=== PATIENT | female | born 1935 | race Caucasian/White ===

== ENCOUNTER → 2021-12-01 11:12 | Outpatient (BNVA) | payer MEDICARE, SELFPAY | PROVIDERS: PCP Internal Medicine; Visit Provider Internal Medicine Endocrinology, Diabetes & Metabolism | DX: M81.0 Age-related osteoporosis without current pathological fracture (principal) | CPT/HCPCS: 99202 ==

== ENCOUNTER 2021-12-01 11:58 | Outpatient (REF) | payer MEDICARE, SELFPAY ==
[2021-12-05 21:51] LABS: Prot Elec - Albumin 3.8 g/dL (3.8-4.8); Prot Elec - Alpha1 0.3 g/dL (0.2-0.3); Prot Elec - Alpha2 0.8 g/dL (0.5-0.9); Prot Elec - Beta 1 0.5 g/dL (0.4-0.6); Prot Elec - Beta 2 0.3 g/dL (0.2-0.5); Prot Elec - Total Protein 6.7 g/dL (6.1-8.1)
== END 2021-12-01 11:59 | disposition home or self-care (01) ==
LOC: HO.10HDL 11:58
PROVIDERS: Visit Provider Internal Medicine Endocrinology, Diabetes & Metabolism
DX: M81.0 Age-related osteoporosis without current pathological fracture (principal)
CPT/HCPCS: 84165; 86335

== ENCOUNTER 2022-04-28 10:29 | Outpatient (REF) | payer MEDICARE, SELFPAY ==
[2022-04-28 14:51] LABS: Creatinine, mg/dL 78.67
[2022-04-28 18:18] LABS: Creatinine, 24Hr Urine 0.9 G/Day (1.0-2.0); Total Volume 24 Hour Urine 1150 mL
[2022-04-29 18:53] LABS: Calcium, 24 Hr Urine 313 mg/24 h; Calcium/Creatinine Ratio 344 mg/g creat (30-275); Creatinine 24Hr Urine 0.91 g/24 h (0.50-2.15)
== END 2022-04-28 10:30 | disposition home or self-care (01) ==
LOC: HO.10HDLNP 10:29
PROVIDERS: Visit Provider Internal Medicine Endocrinology, Diabetes & Metabolism
DX: M81.0 Age-related osteoporosis without current pathological fracture (principal)
CPT/HCPCS: 82340; 82570

== ENCOUNTER → 2022-05-04 07:41 | Outpatient (BNVA) | payer MEDICARE, SELFPAY | PROVIDERS: PCP Internal Medicine; Visit Provider Internal Medicine Endocrinology, Diabetes & Metabolism | DX: M81.0 Age-related osteoporosis without current pathological fracture (principal) | CPT/HCPCS: 99212 ==

== ENCOUNTER 2022-09-27 13:44 | Outpatient (REF) | payer MEDICARE, SELFPAY ==
[2022-09-27 15:08] LABS: Creatinine, mg/dL 40.57
[2022-09-27 19:13] LABS: Creatinine, 24Hr Urine 0.7 G/Day (1.0-2.0); Sodium 24 Hr Urine 126.8 mmol/Day (40-220); Total Volume 24 Hour Urine 1625 mL
[2022-10-02 16:39] LABS: Calcium, 24 Hr Urine 154 mg/24 h; Calcium/Creatinine Ratio 232 mg/g creat (30-275); Creatinine 24Hr Urine 0.67 g/24 h (0.50-2.15)
== END 2022-09-27 13:45 | disposition home or self-care (01) ==
LOC: HO.LNP 13:44
PROVIDERS: Visit Provider Internal Medicine Endocrinology, Diabetes & Metabolism
DX: M81.0 Age-related osteoporosis without current pathological fracture (principal)
CPT/HCPCS: 82340; 84300

== ENCOUNTER → 2022-10-05 07:58 | Outpatient (BNVA) | payer MEDICARE, SELFPAY | PROVIDERS: PCP Internal Medicine; Visit Provider Internal Medicine Endocrinology, Diabetes & Metabolism | DX: M81.0 Age-related osteoporosis without current pathological fracture (principal); R82.994 Hypercalciuria; E89.0 Postprocedural hypothyroidism; Z90.710 Acquired absence of both cervix and uterus | CPT/HCPCS: 99212 ==

== ENCOUNTER 2023-10-04 14:12 | Outpatient (AMB) | payer MEDICARE, SELFPAY ==
--- NOTE | 2023-10-04 14:31 | HO.SPINEOV ---
Intake Visit Reasons: low back pain Intake Note: Ms. Hernandes is here today c/o low back pain. Practice Managers Required: No Allergies alendronate sodium Adverse Reaction (Unknown, Verified 10/04/23 14:36) Abdominal Pain Assessment & Plan Assessment & Plan (1) Lumbar radiculopathy: Code(s): M54.16 - Radiculopathy, lumbar region Category: Medical Plan Mrs Hernandes is here in follow-up today. We did a left L5 foraminotomy on her about a year and a half ago at [facility]. The symptoms that she presented with at that time was pain starting in her left buttock going down into her left posterolateral thigh, into her outer calf. Unfortunately she had no relief at all from the procedure. Not even for single day. The patient reports that when she stands and walks she will get the same severe burning pain down her leg. The only time it has gone away, was when she fractured her ankle back in April and she had to be on a scooter and nonweightbearing and she had 0 pain at that time. Unfortunately when she started walking again after the fracture healed all the symptoms came back. She underwent physical therapy for few months, chiropractor, acupuncture as well as all the typical iwoj-guk-lasvxop meds like Motrin and Tylenol. She is very frustrated because her quality of life is suffering significantly. I am going to order a new MRI of the lumbar spine with and without sadiq out to look for any residual compression. I will also order standing flexion-extension x-rays to rule out any occult instability into assess her bone quality. At her age I suspect the bone quality will not be very good. This may limit what we can do for her if there are any pertinent findings on the MRI. I would like to see her back after the MRI is completed. I have asked her to please make sure she gets a copy of the disc and brings it with her to that visit. Total amount of time spent in this visit was 20 minutes in discussion of symptoms, ordering lumbar imaging and subsequent plan of care Blaine Mckinnon MD,PhD [facility] Orders: Orders XR lumbar spine 4V min Today M54.16 - Radiculopathy, lumbar region MR lumbar spine wo/w con Today M54.16 - Radiculopathy, lumbar region Coding Level of Care Code Est Pt Level 3 (00329) Diagnoses Lumbar radiculopathy M54.16
== END 2023-10-04 15:57 | disposition home or self-care (01) ==
PROVIDERS: PCP Internal Medicine; Visit Provider Physician Assistant
DX: M54.16 Radiculopathy, lumbar region (principal)
CPT/HCPCS: 99213

== ENCOUNTER 2023-10-04 14:12 | Outpatient (REF) | payer MEDICARE, SELFPAY ==
--- NOTE | ~2023-10-04 | XR_ITS ---
EXAMINATION: XR LUMBOSACRAL SPINE WITH OBLIQUES CLINICAL INFORMATION: Radiculopathy lumbar region. COMPARISON: None available. TECHNIQUE: AP, lateral neutral, flexion and extension views of the lumbar spine. FINDINGS: The bones are diffusely demineralized. Levoscoliosis of the thoracolumbar spine. Facet arthritis in the jfr-aw-egopp lumbar spine. Multilevel lumbar spondylosis with multilevel loss of disc space height most notable at L5-S1. Grade 1 anterolisthesis of L4 on L5 with flexion and extension. Mild grade 1 retrolisthesis of L1 on L2 with flexion and extension. XR/XR lumbar spine 4V min IMPRESSION: 1. Advanced multilevel lumbar spondylosis most notable at L5-S1. 2. Facet arthritis in the hiv-rz-hlhab lumbar spine.
== END 2023-10-04 14:13 | disposition home or self-care (01) ==
LOC: HO.HOSX 14:12
PROVIDERS: PCP Internal Medicine; Visit Provider Physician Assistant
DX: M47.27 Other spondylosis with radiculopathy, lumbosacral region (principal); M47.26 Other spondylosis with radiculopathy, lumbar region
CPT/HCPCS: 72110; 99212

== ENCOUNTER 2023-10-19 10:44 | Outpatient (AMB) | payer MEDICARE, SELFPAY ==
--- NOTE | 2023-10-19 11:00 | A.SPINEOV_ITS ---
Intake Visit Reasons: MRI follow up Intake Note: Ms. Hernandes is here today for her MRI F/u Bilingual Secretary Required: No Allergies alendronate sodium Adverse Reaction (Unknown, Verified 10/19/23 11:00) Abdominal Pain Assessment & Plan Assessment & Plan (1) Lumbar radiculopathy: Code(s): M54.16 - Radiculopathy, lumbar region Category: Medical Plan Mrs Hernandes is here in follow-up today. This is a very nice woman who underwent a left L4-5 decompression, L5 foraminotomy in 2021. Before her surgery, she had been living with severe radiculopathy going down her left leg. She underwent a cortisone block at L5 which gave her tremendous relief. She was therefore offered the decompression surgery. Her 1st postoperative visit at [facility], she seemed to be doing okay. The patient reports she never had tremendous relief, but unfortunately over time the symptoms have not only reappeared but have gotten much much worse. She spends the better part of her day dealing with the pain, she was down her left leg into her outer calf. She has numbness of her toes. She has at a point where it is almost unbearable now and she barely wants to leave the house. Please see my last note for the specifics of the problem. Thankfully she has normal strength in her foot. She underwent an MRI at [facility] and this shows that she has the levoscoliosis as seen on her x-rays, but persistent severe stenosis in the left L5 foramen. This is likely due to the fact that she has the severe scoliosis contributing to mechanical factors causing the foramen to remain closed despite adequate decompression at the time of surgery. Dr. Mckinnon reviewed the imaging with me today, he is willing to offer her left L5-S1 pedicle screw fixation, redo foraminotomy/facetectomy. In terms of her medical history, she is very healthy for her age, she has minimal issues including high cholesterol and kidney stone. The only medication she takes currently is latanoprost eyedrops and a statin for her cholesterol. Pt was given risk and benefits of surgery including but not limited to infection, hematoma , nerve injury,durotomy, weakness,bowel/bladder injury, persistent pain, hardware failure as well as the option to continue with conservative treatment and patient wishes to proceed with surgery. Pt is aware they should stop their motrin, aspirin 7 days prior to surgery. All questions were answered to the best of our ability. If there is anything about this patientsmedical history that we have overlooked or concerns you have about us proceeding with surgery we would appreciate any input you can offer. Total amount of time spent in this visit was 20 minutes in discussion of symptoms, lumbar MRI [facility] imaging results and subsequent plan of care Blaine Mckinnon MD,PhD [facility] Coding Level of Care Code Est Pt Level 3 (72066) Diagnoses Lumbar radiculopathy M54.16
== END 2023-10-19 11:45 | disposition home or self-care (01) ==
PROVIDERS: PCP Internal Medicine; Visit Provider Physician Assistant
DX: M54.16 Radiculopathy, lumbar region (principal)
CPT/HCPCS: 99213

== ENCOUNTER → 2023-10-19 10:44 | Outpatient (BNVA) | payer MEDICARE, SELFPAY | PROVIDERS: PCP Internal Medicine; Visit Provider Physician Assistant | DX: M54.16 Radiculopathy, lumbar region (principal) | CPT/HCPCS: 99212 ==

== ENCOUNTER → 2024-01-01 10:46 | Outpatient (BNV) | payer MEDICARE, SELFPAY | PROVIDERS: PCP Internal Medicine; Visit Provider Internal Medicine Cardiovascular Disease | DX: Z01.810 Encounter for preprocedural cardiovascular examination (principal) | CPT/HCPCS: 93010 ==

== ENCOUNTER 2024-01-15 06:04 | Inpatient (IN) | payer MEDICARE, SELFPAY ==
--- NOTE | 2024-01-01 | ECG_ITS ---
Test Reason : preop Blood Pressure : / mmHG Vent. Rate : 074 BPM Atrial Rate : 074 BPM P-R Int : 144 ms QRS Dur : 074 ms QT Int : 382 ms P-R-T Axes : 066 002 056 degrees QTc Int : 424 ms Normal sinus rhythm Possible Left atrial enlargement Borderline ECG No previous ECGs available Referred By: Keri Posey Electronically Signed By:MARY FREITAS MD
[2024-01-01 10:08] VITALS: BP 150/66; PULSE 77; RESP 20; O2SAT 97; BMI 25.6
[2024-01-01 11:42] LABS: Hematocrit 43.4 % (37.0-47.0); Hemoglobin 14.1 g/dl (12.0-16.0); Mean Corpuscular HGB Conc 32.5 g/dl (31.0-35.0); Mean Corpuscular Hemoglobin 30.3 pg (27.0-33.0); Mean Corpuscular Volume 93.3 fL (80.0-98.0); Mean Platelet Volume 9.1 fL (9.4-12.3); Platelet Count 327 X10*3/uL (160-400); Red Blood Count 4.65 X10*6/uL (4.20-5.50); Red Cell Distribution Width 13.5 % (11.0-16.0); White Blood Count 8.1 X10*3/uL (4.8-10.8)
[2024-01-01 12:11] LABS: Anion Gap 14 (12-20); Blood Urea Nitrogen 15 mg/dL (9-16); Calcium 9.5 mg/dL (8.4-10.2); Carbon Dioxide 29 mmol/L (22-29); Chloride 104 mmol/L (96-108); Creatinine Clr Calc Pharmacy 47.7; Estimated Glomerular Filt Rate > 60; Glucose Random 73 mg/dL (60-115); Sodium 143 mmol/L (135-145)
[2024-01-15] VITALS (16 sets, daily range): BP systolic 119–166; BP diastolic 54–87; PULSE 70–92; RESP 15–18; TEMP 36–36.6; O2SAT 94–98; BMI 25.4; BMI 26.1
[2024-01-15] MEDS: Lactated Ringers 1,000 ML 100 ML IVCONT (06:26)
[2024-01-15] MEDS: methocarbamoL 750 MG TABLET PO (07:05)
[2024-01-15] MEDS: Gabapentin 300 MG CAPSULE PO (07:05)
--- NOTE | 2024-01-15 07:20 | P.CONAN_ITS ---
Documented by User: Keri Posey NP 01/11/24 14:30 HPI - Anesthesia Eval Consult details Narrative: 88yo F for Left L5-S1 Pedicle Screw Fixation and REDO Foraminotomy/Facetectomy, 01/15/24 No recent illness No CP/SOB with ADL's. Only limited by back pain PMFSH Active Problems Active Problems: All Active Problems Lumbar radiculopathy (Acute) Past Medical History Medical History Female stress incontinence Osteoporosis Osteoarthritis Nonexudative age-related macular degeneration, right eye, stage unspecified Renal calculi Elevated cholesterol Family History Family History Mother Heart problem Father No problems noted. Family history of problems with anesthesia: No Surgical History Surgical History H/O colonoscopy Hx of right cataract extraction History of partial hysterectomy Hx of cystoscopy Hx of lumbosacral spine surgery History of thyroidectomy History of Problems with Anesthesia: No Social History Social History Household Members: Significant Other Household Members Other:: Franics, boyfriend Are you a primary respiratory care program director to a significant other at home: No Do you presently have visiting nurse or other home services: No Alcohol intake: current Alcohol intake frequency: holidays/special occasions only Patient Tobacco Use Status: Former Tobacco user Tobacco use type: Cigarette Years Smoked: 7 Have you been hit, kicked, punched, or otherwise hurt by someone within the past year? If so, by whom?: No Are you DNR?: No Advance Directives: No (S.O. is primary contact) Advance Directives Information Provided: Yes (as above noted) Advance Directives on File: No Recently lost weight without trying: No Eating poorly because of decreased appetite: No Nutrition Risks: Surgical patient >75years Poor oral hygiene: No (full upper denture & implant posts lower with removable plate) Meds Allergies Allergy/AdvReac Type Severity Reaction Status Date / Time alendronate sodium AdvReac Intermediate Abdominal Verified 01/15/24 06:22 Pain Home Medications ?Medication ?Instructions ?Recorded ?Confirmed ?Last Taken ?Type cholecalciferol (vitamin D3) 25 25 mcg PO QAM 12/01/21 01/01/24 Unknown History mcg (1,000 unit) capsule latanoprost 0.005 % eye drops 1 drp ophthalmic (eye) BEDTIME 12/01/21 01/01/24 Unknown History pravastatin 20 mg tablet 20 mg PO BEDTIME 12/01/21 01/01/24 Unknown History vit C 250 mg-vit E 90 mg-zinc 40 2 tab PO QAM 01/01/24 01/01/24 Unknown History mg-copper 1 [id number]-vmnotw-mihbbs capsule (PreserVision AREDS-2) gabapentin 300 mg capsule mg 01/15/24 01/15/24 Unknown History Exam Pertinent Lab Results Pertinent Lab Results: Lab Results 01/01/24 Range/Units 10:55 WBC 8.1 (4.8-10.8) X10*3/uL RBC 4.65 (4.20-5.50) X10*6/uL Hgb 14.1 (12.0-16.0) g/dl Hct 43.4 (37.0-47.0) % MCV 93.3 (80.0-98.0) fL MCH 30.3 (27.0-33.0) pg MCHC 32.5 (31.0-35.0) g/dl RDW 13.5 (11.0-16.0) % Plt Count 327 (160-400) X10*3/uL MPV 9.1 L (9.4-12.3) fL Absolute Nucleated RBC 0.000 (0.0-0.012) X10*3/uL Nucleated RBC % (auto) 0.0 (0.0-0.2) /100WBC Sodium 143 (135-145) mmol/L Potassium 4.0 (3.3-5.1) mmol/L Chloride 104 (96-108) mmol/L Carbon Dioxide 29 (22-29) mmol/L Anion Gap 14 (12-20) BUN 15 (9-16) mg/dL Creatinine 0.77 (0.5-1.4) mg/dL Estim Creat Clear Calc 47.7 Estimated GFR > 60 Random Glucose 73 (60-115) mg/dL Calcium 9.5 (8.4-10.2) mg/dL Narrative Narrative: EKG 12/2023 Vent. Rate : 074 BPM Atrial Rate : 074 BPM P-R Int : 144 ms QRS Dur : 074 ms QT Int : 382 ms P-R-T Axes : 066 002 056 degrees QTc Int : 424 ms Normal sinus rhythm Possible Left atrial enlargement Borderline ECG No previous ECGs available Airway Mallampati Class: II TM Dist: >3cm Neck ROM: Full Denture: Upper and Lower (Implant posts ) Heart: RRR Lungs: CTAB Assessment and Plan Assessment Anesthesia Assessment: Anesthesia Plan Discussed and PAT Visit Final Anesthetic Review Family History of Problems with Anesthesia: No History of Problems with Anesthesia: No Documented by User: Erika Pop DO 01/15/24 07:23 [facility] Past Medical History Medical History Female stress incontinence Osteoporosis Osteoarthritis Nonexudative age-related macular degeneration, right eye, stage unspecified Renal calculi Elevated cholesterol Family History Family History Mother Heart problem Father No problems noted. Family history of problems with anesthesia: No Surgical History Surgical History H/O colonoscopy Hx of right cataract extraction History of partial hysterectomy Hx of cystoscopy Hx of lumbosacral spine surgery History of thyroidectomy History of Problems with Anesthesia: No Social History Social History Household Members: Significant Other Household Members Other:: Franics, boyfriend Are you a primary respiratory care program director to a significant other at home: No Do you presently have visiting nurse or other home services: No Alcohol intake: current Alcohol intake frequency: holidays/special occasions only Patient Tobacco Use Status: Former Tobacco user Tobacco use type: Cigarette Years Smoked: 7 Have you been hit, kicked, punched, or otherwise hurt by someone within the past year? If so, by whom?: No Are you DNR?: No Advance Directives: No (S.O. is primary contact) Advance Directives Information Provided: Yes (as above noted) Advance Directives on File: No Recently lost weight without trying: No Eating poorly because of decreased appetite: No Nutrition Risks: Surgical patient >75years Poor oral hygiene: No (full upper denture & implant posts lower with removable plate) Meds Allergies Allergy/AdvReac Type Severity Reaction Status Date / Time alendronate sodium AdvReac Intermediate Abdominal Verified 01/15/24 06:22 Pain Home Medications ?Medication ?Instructions ?Recorded ?Confirmed ?Last Taken ?Type cholecalciferol (vitamin D3) 25 25 mcg PO QAM 12/01/21 01/01/24 Unknown History mcg (1,000 unit) capsule latanoprost 0.005 % eye drops 1 drp ophthalmic (eye) BEDTIME 12/01/21 01/01/24 Unknown History pravastatin 20 mg tablet 20 mg PO BEDTIME 12/01/21 01/01/24 Unknown History vit C 250 mg-vit E 90 mg-zinc 40 2 tab PO QAM 01/01/24 01/01/24 Unknown History mg-copper 1 [id number] capsule (PreserVision AREDS-2) gabapentin 300 mg capsule mg 01/15/24 01/15/24 Unknown History Exam Exam Date and Time: January 15, 2024 0716 Height,Weight and Vital Signs: Height 5 ft 4 in Weight 67.132 kg Vital Signs Pulse Rate 77 01/01/24 10:08 Respiratory Rate 20 01/01/24 10:08 Blood Pressure 150/66 H 01/01/24 10:08 Pulse Oximetry 97 01/01/24 10:08 Oxygen Delivery Method Room Air 01/01/24 10:08 Temperature 97.9 F 01/15/24 07:09 Pulse Rate 70 01/15/24 07:09 Respiratory Rate 18 01/15/24 07:09 Blood Pressure 166/78 H 01/15/24 07:09 Pulse Oximetry 96 01/15/24 07:09 Oxygen Delivery Method Room Air 01/15/24 07:09 Airway Mallampati Class: III TM Dist: >3cm Neck ROM: Full Denture: Upper and Lower Heart: S1S2 Assessment and Plan Assessment Anesthesia Assessment: Anesthesia Plan Discussed and Chart Reviewed Final Anesthetic Review Family History of Problems with Anesthesia: No History of Problems with Anesthesia: No NPO: Yes ASA Class: II Final Preanesthetic Review: No Changes in Pt Med Stat, Meds/Allgs Chart Reviewed, Consent Obtained/Reviewed and Anes Risks/Benef Reviewed Patient Risk: Low Procedure Risk: Intermediate Anesthetic Plan Anesthetic Plan: GA and Agree w/ Assess. and Plan Disposition: Standard PACU
--- NOTE | 2024-01-15 07:38 | MHC.SHP ---
Pre-Procedural Eval Section A - 24 Hr Update-Section A only Date of Service: 01/15/24 The patient is an INPATIENT: No Changes since office visit: No Cold of Flu in the past 2 weeks, No New Medical Problems, No Changes in Medication and No Patient answered all questions The patient has been examined within 24 hours of the surgical procedure. The History & Physical has been completed within 30 days and I have reviewed it.: No Section B - Complete if H&P > 30 days Chief Complaint: s/p revision L5-S1 pedicle screw fixation, redo Allergies: Allergies Allergy/AdvReac Type Severity Reaction Status Date / Time alendronate sodium AdvReac Intermediate Abdominal Verified 01/15/24 06:22 Pain Review of Systems Sugical H&P ROS: Negative: Constitution, Cardiovascular, Respiratory, Neurological, Psychiatric, Hem-Onc, Allergic/Immunologic, Gastrointestinal, Genitourinary, Musculoskeletal, Integumentary, Endocrine and Eyes/Ears/Nose/Throat Exam Surgical H&P Exam: Normal: HEENT, Normal: Heart, Normal: Lungs, Normal: Extremities, Normal: Abdomen, Normal: Skin and Normal: Neurological Plan Diagnosis/Plan: Unchanged left L5-S1 redo foraminotomy,facetectomy and pedicle screws Time Spent With Patient Time: Total time managing care of this patient today __7__ minutes.
--- NOTE | 2024-01-15 10:12 | P.OP_ITS ---
Operative Note Operative Note Date of Service: 01/15/24 Narrative: Preop diagnosis: Left L5 foraminal stenosis Postop diagnosis: Same Procedure: Left L5-S1 laminotomy and complete facetectomy to decompress the L5 nerve root; L5-S1 posterior instrumentation; allograft Consent Informed Consent was obtained for this operation. I have explained the nature, purpose and benefits of the operation. I have discussed the risks and benefit of the operation including possible complications or adverse events with patient/family. Alternative(s) were discussed with the patient with their relative benefits and risks as well as the consequences of not accepting the operation were included in obtaining consent. Surgeon: Reed Mckinnon MD, PhD Assist: connor Schaeffer Description of Procedure: This patient had a previous L5 foraminotomy done with good results. Over time left L5 radiculopathy returned. The physiology behind return if symptoms are lumbar degenerative scoliosis that collapsed the L5 foramen again. The patient was offered a left foraminotomy and complete facetectomy to decompress the L5 nerve root followed by unilateral instrumentation L5-S1. The Procedure and complication were explained. The patient was consented. The patient was brought to the operating room endotracheally intubated. The patient was turned in a prone position the Wilfrido spine table prepping and draping was done followed by time-out. Two C arms were installed for fluoroscopy. Two paramedian incisions were made in preparation for pedicle screw placement. Following steps were taken for pedicle screw placement: First the pediguard tap was used to create a transpedicular trajectory into the vertebral body. Then a K-wire was advanced into the vertebral body. The K-wires were bent out of the way after which the decompression was started. The paravertebral muscles were released to expose the L5-S1 lamina and facet joint. A high-speed drill was used to a complete facetectomy. The facetectomy was extended near flush to the S1 and L5 pedicles in this way the L5 nerve root at maximum space to deploy. The L5 nerve root was followed towards the thecal sac and a small laminotomy was done to make sure the nerve was also decompressed in the lateral recess. Finally, pedicle screws were placed over the K-wires and the K-wires were removed. A total of 2 pedicle screws were placed with a diameter of 6.5 x 45 mm in the left L5 and S1 pedicles. The pedicle screws were connected with a 40 mm maldonado and locked down with locking caps. In the posterolateral gutter autograft was laid down. Final x-rays in AP and lateral projection showed good position of theposterior instrumentation. Hemostasis was done and the incisions were closed with an 0 Vicryl to fascia and a 3-0 Vicryl for the subdermal layer. All sponge and needle counts were correct. Patient was extubated and transported in a stable condition to recovery room. This procedure was done with assistance of her physician assistant production manager who helped an mill order scheduler in the fluoroscopic imaging, placed pedicle screws and performed hemostasis and closure of the incisions. Anesthesia: General Estimated blood loss: 30 mL Complications: None. Deposition: Admit to inpatient for observation.
[2024-01-15] MEDS: Ketorolac Tromethamine 15 MG/ML VIAL IVPUSH ×3 (10:40→21:43)
[2024-01-15] MEDS: Cholecalciferol (Vitamin D3) 25 MCG TABLET PO (12:59)
--- NOTE | 2024-01-15 13:53 | PHA.MEDREC ---
Addendum entered by Silas Rose RPh 01/15/24 14:01: Med rec was reviewed by [facility]. Original Note: Pharmacy Consult ? Medication Reconciliation Pharmacy has completed the medication reconciliation. Spoke to patient to confirm med list. Patient states she takes Gabapentin 300 mg at bedtime only, last fill 10-08-23 for 180 caps for 30 day supply.
[2024-01-15] MEDS: Acetaminophen 1,000 MG/100 ML PIGGYBACK 400 MG IV ×2 (14:08→20:41)
[2024-01-15] MEDS: ceFAZolin Sodium/Dextrose,Iso 2 GM/50 ML PIGGYBACK IV ×2 (14:11→20:44)
[2024-01-15] MEDS: Pravastatin Sodium 20 MG TABLET PO (20:40)
[2024-01-15] MEDS: Docusate Sodium 100 MG CAPSULE PO (20:40)
[2024-01-15] MEDS: Latanoprost 0.005 % Ophth Sol 2.5 ML DROPS 1 DROP EYE-BOTH (20:40)
[2024-01-16] MEDS: Acetaminophen 1,000 MG/100 ML PIGGYBACK 400 MG IV ×2 (02:14→08:31)
[2024-01-16] MEDS: ceFAZolin Sodium/Dextrose,Iso 2 GM/50 ML PIGGYBACK IV (02:17)
[2024-01-16 02:27] VITALS: BP 150/82; PULSE 75; RESP 18; TEMP 36.6; O2SAT 95
[2024-01-16] MEDS: Ketorolac Tromethamine 15 MG/ML VIAL IVPUSH ×2 (03:34→08:31)
[2024-01-16 07:25] VITALS: BP 141/72; PULSE 78; RESP 14; TEMP 36.7; O2SAT 98
--- NOTE | 2024-01-16 07:53 | P.DS_ITS ---
DS: Providers Provider Date of Service: 01/16/24 Date of admission: 01/15/24 06:04 Primary care physician: Memo Ryan MD DS: Summary Time Attestation Discharge Coordination Time (in mins): 15 Quality: Safe Use of Opioids Does Pt have an Active Cancer Diagnosis on the Problem List?: No Quality: Stroke Does the patient have a stroke diagnosis?: No Physical Exam Vital Signs: Vital Signs: Last Vital Signs Temp 98.0 F 01/16/24 07:25 Pulse 78 01/16/24 07:25 Resp 14 01/16/24 07:25 BP 141/72 H 01/16/24 07:25 Pulse Ox 98 01/16/24 07:25 O2 Del Method Room Air 01/16/24 07:25 O2 Flow Rate 6 01/15/24 09:52 BMI result Body Mass Index 26.1 Discharge Plan Discharge Anticipated Discharge Date/Time: 01/16/24 07:57 Patient Disposition: Home, Self-Care Discharge Diagnosis: s/p L5-S1 FORAMINOTOMY WITH PEDICLE SCREW PLACEMENT Referrals: Memo Ryan MD [Primary Care Provider] - 1 Week Discharge Medications: New hydrocodone-acetaminophen 5-325 mg tablet 1 tab PO Q6H PRN (Reason: severe pain (scale score 7-10)) Qty: 30 0RF Rx Instructions: Partial Fill upon patient request. Continued PreserVision AREDS-2 250-90-40-1 mg Capsule 2 tab PO QAM gabapentin 300 mg capsule 300 mg BEDTIME Rx Instructions: patient states takes 300 mg hs only pravastatin 20 mg tablet 20 mg PO BEDTIME latanoprost 0.005 % drops 1 drp ophthalmic (eye) BEDTIME Rx Instructions: uses in both eyes cholecalciferol (vitamin D3) 25 mcg (1,000 unit) capsule 25 mcg PO DAILY Discharge Orders: Discharge Order (Routine); Ordered 01/16/24 Ordered By: Jose Godinez Diet: Advance to usual diet Activity on Discharge: As tolerated Stand Alone Forms: Patient Portal Discharge page Print Language: Malay Activity Restrictions/Additional Instructions: After your spinal surgery we ask you to observe the following restrictions/guidelines: Activity: With lumbar fusion surgery it is normal to have days in the first couple of weeks where you have increased leg pain. This usually lasts 1-2 days and self resolves with the continuation of medication. Attempt to stay mobile and continue activity as tolerated. It is normal to feel some discomfort as you increase your activity, but that will improve with time. We ask you avoid heavy lifting or activities that cause pain. As a general rule, 8lbs is a safe limit for lifting right after surgery. Walk as much as you feel comfortable but not to exhaustion. You will feel extra tired the first few days after surgery. Stay well hydrated. It is OK to walk up and down stairs You may return to driving when you are off narcotics (such as vicodin, oxycodone, dilaudid, etc), and you are back to normal functional capacity. If you have any concerns please check with office before driving. Return to work is specific to each patient and each surgery, so please speak with your doctor/PA at first follow up. Please bring paperwork such as FMLA at that time if you need it filled out. Medications: It is recommended that you take Tylenol 500 mg every 6 hours alongside Vicodin 5-325mg every 6 hours. You may also use Ibuprofen if you are able to tolerate it. We will give you a short supply of narcotics after surgery (usually one weeks worth). ??Please use this for breakthrough pain that is refractory to the Tylenol ibuprofen and gabapentin. If you need more please call the office but do not use more than prescribed. You will need to give our office 48 hours notice if you need narcotics refilled and we do not fill narcotics on weekends or evenings. If you are on a narcotic, it is a good idea to take a stool softener such as colace or senna to avoid constipation If you take blood thinner such as aspirin, Plavix, Coumadin, Effient, Eliquis etc for conditions such as Afib, DVT, Pulmonary embolus, coronary disease, stents etc please speak with your surgeon about specific details as to when you can resume these medications. Follow up: Please call the office, , after surgery to arrange a 3 week follow up for wound check. Wound Care: You may remove your dressing on the first day after surgery. ?You may ?leave open to air. Please do not remove the steri strips underneath. they will fall off on their own in one week. IT IS NORMAL FOR THE WOUND TO OOZE OR BE BLOODY FOR A FEW DAYS AFTER SURGERY. ?IF THIS HAPPENS JUST PLACE NEW DRESSING OVER IT TO AVOID STAINING CLOTHES. You may shower on post op day # 1 We ask that you do not let the water soak the wound. If it does get wet, just towel dry lightly. Please do not scrub your incision or place any type of chemical/ointment on the wound. No tub baths, pools or jacuzzis for one month. If you have any leaking or redness from your wound, or fevers, please call office Care Plan Goals: Returned to normal activity as tolerated. Health Concerns: None. Plan of Treatment: Follow-up in clinic in 2-3 weeks. Assessment: POD: 1 Procedure: L5-S1 Foraminotomy with pedicle screw placement Latasha was seen this morning standing at her sink on 3 . To recap Latasha had some difficulty with postoperative bleeding yesterday, but this subsided shortly after I changed her back dressing. Latasha reports she is up walking around is otherwise doing well. She feels his symptoms are much better than pre- operatively. She is voiding well, tolerating diet. Afebrile, vital signs stable. Full strength 5/5 LE. Back dressings have some staining without signs of hematoma. No active sanguineous drainage. Area is dry. Plan: Patient meets criteria to be medically discharged home. This was discussed with the attending neurosurgeon Dr. Mckinnon. Jose Mckinnon MD,PhD [facility]
[2024-01-16 08:00] VITALS: BP 141/72; PULSE 78; O2SAT 98
[2024-01-16] MEDS: Cholecalciferol (Vitamin D3) 25 MCG TABLET PO (08:31)
[2024-01-16] MEDS: Docusate Sodium 100 MG CAPSULE PO (08:31)
[2024-01-16] MEDS: Multivitamin TABLET 1 TAB PO (08:31)
--- NOTE | 2024-01-16 09:45 | MHC.CM.PN ---
IMM 01/16/24 Patient lives with S.O. She is independent with all functional mobility. A copy of her HCP was requested. Patient is discharged today. She will return home with family assist and transport.
[2024-01-16 11:52] VITALS: BP 150/70; PULSE 80; RESP 14; TEMP 36.2; O2SAT 98
[2024-01-16] MEDS: Calcium Carbonate 750 MG TAB.CHEW PO (12:32)
--- NOTE | 2024-01-16 13:15 | HO.POSTANES ---
Post Anesthesia Evaluation Post Anesthesia Evaluation Date of Service: 01/16/24 Vital Signs: Vital Signs Temp Pulse Resp BP Pulse Ox O2 Del Method 01/16/24 11:52 97.1 F 80 14 150/70 H 98 Room Air 01/16/24 08:00 78 141/72 H 98 01/16/24 07:25 98.0 F 78 14 141/72 H 98 Room Air 01/16/24 02:27 97.8 F 75 18 150/82 H 95 Room Air Anesthesia: General Endotracheal-GETA Mental Status: Awake Pain Control: Satisfactory Nausea/Vomiting: None Hydration: Adequate Anesthesia-Related Issues: No Anes. Related Issues
== END 2024-01-16 13:25 | disposition home or self-care (01) | DRG 518 ==
LOC: HO.SSSA 06:56 → HO.S3 11:36
PROVIDERS: Neurological Surgery; Nurse Practitioner; Admitting Provider Physician Assistant; PCP Internal Medicine; Visit Provider Physician Assistant
PROC: 0SH30BZ Insertion of Interspinous Process Spinal Stabilization Device into Lumbosacral Joint, Open Approach (ICD-10-PCS; CPT 22612; principal; 2024-01-15 07:30)
DX: M48.061 Spinal stenosis, lumbar region without neurogenic claudication (principal); M41.56 Other secondary scoliosis, lumbar region; Z87.891 Personal history of nicotine dependence; Z79.899 Other long term (current) drug therapy
CPT/HCPCS: 22612; 63047; 22840; 20936; 36415; 80048; 85027; 93005; 97116; 97162; C1713; J0131; J0690; J1100; J1885; J2405; J2704; J3010

== ENCOUNTER → 2024-01-15 06:04 | Outpatient (BNV) | payer MEDICARE, SELFPAY | PROVIDERS: Admitting Provider Physician Assistant; PCP Internal Medicine; Visit Provider Neurological Surgery | DX: M48.061 Spinal stenosis, lumbar region without neurogenic claudication (principal) | CPT/HCPCS: 20936; 22612; 22840; 63047; 99499 ==

== ENCOUNTER 2024-02-25 13:19 | Outpatient (AMB) | payer MEDICARE, SELFPAY ==
--- NOTE | 2024-02-25 13:32 | A.SPINEOV_ITS ---
Intake Visit Reasons: 1st post op Intake Note: Ms. Hernandes is here today for her 1st post-op visit. 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 Her leg pain is completely gone. She is getting back to activities as usual. Unfortunately about 10 days after her surgery she ended up needing her gallbladder out. She seems to be recovering from that okay. Her wound is healed up nicely. We discussed activity guidelines, restrictions and expectations after lumbar surgery. At this point we can see her back on an as-needed basis. Blaine Mckinnon MD, PhD [facility] Coding Level of Care Code Global (42401) Diagnoses Lumbar radiculopathy M54.16
== END 2024-02-25 14:48 | disposition home or self-care (01) ==
PROVIDERS: PCP Internal Medicine; Visit Provider Physician Assistant
DX: M54.16 Radiculopathy, lumbar region (principal)
CPT/HCPCS: 99024

== ENCOUNTER → 2024-02-25 13:19 | Outpatient (BNVA) | payer MEDICARE, SELFPAY | PROVIDERS: PCP Internal Medicine; Visit Provider Physician Assistant | DX: M54.16 Radiculopathy, lumbar region (principal) | CPT/HCPCS: 99212 ==